=== PATIENT | female | born 1950 | race Caucasian/White ===

== ENCOUNTER → 2016-09-03 | Outpatient (CLI) | payer BC ==
[~2016-09-03] MED LIST: AMLO5TAB2 PO; DOXY100C2 PO; ERLO100T PO; MAGN400T6 PO; ONDA8TAB12 PO
--- NOTE | 2016-09-03 14:12 | DI ---
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 Anterior and posterior planar whole-body and spot images were obtained. FINDINGS: The scan demonstrates the expected normal biodistribution for the radiotracer. Mild degenerative uptake in the shoulders and feet. There is no abnormal radiotracer uptake to suggest bony metastasis. IMPRESSION: No evidence of metastatic disease to the skeleton. .
== END ==
LOC: IMA 10:36
PROVIDERS: ATTEND Internal Medicine Hematology & Oncology
DX: C34.11 Malignant neoplasm of upper lobe, right bronchus or lung (principal)
CPT/HCPCS: 78306; A9503